=== PATIENT | female | born 1975 | race Caucasian/White ===

== ENCOUNTER 2016-11-14 19:29 | Emergency (ER) | payer BC, MEDICAID ==
[2013-08-31 23:21] VITALS: BMI 37.8
[~2016-11-14 19:29] MED LIST: AMBIEN10 MG PO; BACTRIM DS TABL1 TAB PO; COLACE100 MG PO; ESTRACE 0.5 MG0.5 MG PO; MULTI-DAY VITAM1 TAB PO; NORCO 10/325 TA1 TA1 PO; NORCO 5/325 TAB1 TA1 PO; PERCOCET 5/3251 TA1 PO; PHENAZOPYRIDIN200 MG PO; PROZAC20 MG PO; RESTORIL15 MG PO; SYNTHROID25 MCG PO
[2016-12-29] MEDS ORDERED: HYDROCODONE-APA1 TAB PO (11:43)
[2016-12-29] MEDS ORDERED: KLONOPIN1 MG PO (11:44)
[2016-12-30 12:22] VITALS: BMI 38.9
== END 2016-11-14 22:38 | disposition home or self-care (01) ==
LOC: D.ER 19:29
DX: S99.921A Unspecified injury of right foot, initial encounter (principal); W19.XXXA Unspecified fall, initial encounter; Y93.89 Activity, other specified; Y92.89 Other specified places as the place of occurrence of the external cause

== ENCOUNTER 2016-11-16 00:19 | Emergency (ER) | payer MEDICAID ==
[2013-08-31 23:21] VITALS: BMI 37.8
[2016-12-29] MEDS ORDERED: HYDROCODONE-APA1 TAB PO (11:43)
[2016-12-29] MEDS ORDERED: KLONOPIN1 MG PO (11:44)
[2016-12-30 12:22] VITALS: BMI 38.9
== END 2016-11-16 01:18 | disposition home or self-care (01) ==
LOC: D.ER 00:19
DX: Z76.5 Malingerer [conscious simulation] (principal); M25.571 Pain in right ankle and joints of right foot

== ENCOUNTER 2016-11-16 11:49 | Emergency (ER) | payer MEDICAID ==
[2013-08-31 23:21] VITALS: BMI 37.8
[2016-12-29] MEDS ORDERED: HYDROCODONE-APA1 TAB PO (11:43)
[2016-12-29] MEDS ORDERED: KLONOPIN1 MG PO (11:44)
[2016-12-30 12:22] VITALS: BMI 38.9
== END 2016-11-16 15:05 | disposition home or self-care (01) ==
LOC: D.ER 11:49
DX: S99.921A Unspecified injury of right foot, initial encounter (principal); X58.XXXA Exposure to other specified factors, initial encounter; Y93.9 Activity, unspecified; Y92.89 Other specified places as the place of occurrence of the external cause

== ENCOUNTER 2016-11-18 10:31 | Day surgery (SDC) | payer MEDICAID, OTHER ==
[~2016-11-18] VITALS: Ht 162.6 cm; Wt 100.2 kg
[2016-11-18 11:15] VITALS: BP 130/80; Ht 162.6 cm; Wt 100.2 kg
[2016-11-18 11:49] LABS: HEMATOCRIT 39.5 % (36.0-48.0); HEMOGLOBIN 12.4 g/dL (12-16); MCH 33.1 pg (26.0-34.0); MCHC 31.4 g/dL (31.0-37.0); MCV 105.3 fL (80.0-100.0); RBC 3.75 10x6/uL (4.00-5.40); RDW 15.1 % (11.5-14.5); WBC 5.5 10x3/uL (4.8-10.8)
[2016-11-18] MEDS ORDERED: MEPERIDINE HCL50 MG PO (12:52)
--- NOTE | 2016-11-18 13:37 | NUR ---
1330-RECEIVED PT FROM PACU SLEEPY, VSS POX 98% ON 2L VIA NC. PT AROUSES TO VERBAL STIMULI. PT DENIES ANY PAIN AT THIS TIME. MOTHER AT BEDSIDE. PT CAN NOT FEEL ME TOUCHING HER TOES, BUT THERE IS GREAT CAP REFILL WILL CONTINUE TO MONITOR
--- NOTE | 2016-11-18 17:53 | NUR ---
1230 NAUSEA GIVEN ZOFRAN 1315 TAKEN FEW ICE CHIPS 1415 IV DC WITH CATHER TIP INTACT
--- NOTE | 2016-11-18 18:02 | NUR ---
1400 RESTING WITH EYES CLOSED 1500 WAITING ON WALKER 1530 PT HERE DANIELLE Mai DONE [id number] IV DC WITH CATHER TIPM INTACT
--- NOTE | 2016-11-22 17:08 | OP ---
PATIENT NAME: MITCHELL ARAUJO MEDICAL RECORD: [id number] :73 LOCATION:D.[facility] ADMISSION DATE: SURGEON: FAVIAN MADERA MD DATE OF OPERATION: 11/18/2016 PREOPERATIVE DIAGNOSIS: Displaced 5th metatarsal fracture. POSTOPERATIVE DIAGNOSIS: Displaced 5th metatarsal fracture. PROCEDURE: Open reduction internal fixation of displaced 5th metatarsal fracture. SURGEON: Favian Madera MD. ANESTHESIA: General. INTRAOPERATIVE COMPLICATIONS: None. SUMMARY OF PATHOLOGIC FINDINGS: Essentially none. OPERATIVE SUMMARY IN DETAIL: After obtaining the appropriate preoperative orthopedic surgery consent, as well as anesthetic consultation, evaluation and clearance, the patient was brought to the operating room and placed on the operating table in supine position. After adequate general laryngeal mask airway was administered, tourniquet was placed about the proximal aspect of the right lower extremity. Right lower extremity was then prepped and draped in routine sterile fashion. The leg was elevated and exsanguinated, tourniquet was inflated to 350 mmHg. Fluoroscopy was brought in. An incision was made in the mid lateral aspect of the proximal aspect of the fifth metatarsal. Incision was carried down to the fracture and a post fracture hematoma was removed. The fracture was reduced at this point and a single guidewire for the 4.0 cannulated screws was placed down the shaft of the fifth metatarsal while holding the fracture reduced. A 46-mm 3.0 compression screw was placed across the fracture and the head which was buried into the bone resulting in excellent compression across the fracture site itself. Having completed this, the wound was irrigated and closed with 4-0 Prolene. Sterile dressings were applied. Posterior L&U splint was applied. The patient was awakened, taken to the recovery room in stable condition. All final needle and sponge counts were correct. TRANSINT:[id number] Voice Confirmation ID: [id number] DOCUMENT ID: [id number] FAVIAN MADERA MD at 1708 CC: [id number] DICTATION DATE: 11/18/16 1250 CRACKLING PRESS OPERATOR: 11/18/16 1504 [facility] 11/18/16 [place] [address]
[2016-12-29] MEDS ORDERED: HYDROCODONE-APA1 TAB PO (11:43)
[2016-12-29] MEDS ORDERED: KLONOPIN1 MG PO (11:44)
== END 2016-11-18 16:00 | disposition home or self-care (01) ==
LOC: D.OPS 10:31
PROVIDERS: Anesthesiology
DX: S92.351A Displaced fracture of fifth metatarsal bone, right foot, initial encounter for closed fracture (principal)

== ENCOUNTER 2016-12-19 00:14 | Emergency (ER) | payer MEDICAID ==
[2016-11-18 11:15] VITALS: BMI 38.0
[~2016-12-19 00:14] MED LIST changes: +MEPERIDINE HCL50 MG PO
[2016-12-29] MEDS ORDERED: HYDROCODONE-APA1 TAB PO (11:43)
[2016-12-29] MEDS ORDERED: KLONOPIN1 MG PO (11:44)
== END 2016-12-19 04:40 | disposition home or self-care (01) ==
LOC: D.ER 00:14
DX: S90.31XA Contusion of right foot, initial encounter (principal); S80.01XA Contusion of right knee, initial encounter; W19.XXXA Unspecified fall, initial encounter; Y93.89 Activity, other specified; Y92.019 Unspecified place in single-family (private) house as the place of occurrence of the external cause; S93.401A Sprain of unspecified ligament of right ankle, initial encounter

== ENCOUNTER 2016-12-24 22:18 | Emergency (ER) | payer MEDICAID ==
[2016-11-18 11:15] VITALS: BMI 38.0
[2016-12-29] MEDS ORDERED: HYDROCODONE-APA1 TAB PO (11:43)
[2016-12-29] MEDS ORDERED: KLONOPIN1 MG PO (11:44)
== END 2016-12-25 02:31 | disposition home or self-care (01) ==
LOC: D.ER 22:18
DX: G89.18 Other acute postprocedural pain (principal)

== ENCOUNTER 2016-12-26 12:21 | Emergency (ER) | payer MEDICAID ==
[2016-11-18 11:15] VITALS: BMI 38.0
[2016-12-29] MEDS ORDERED: HYDROCODONE-APA1 TAB PO (11:43)
[2016-12-29] MEDS ORDERED: KLONOPIN1 MG PO (11:44)
== END 2016-12-26 15:57 | disposition home or self-care (01) ==
LOC: D.ER 12:21
DX: G89.18 Other acute postprocedural pain (principal); M96.89 Other intraoperative and postprocedural complications and disorders of the musculoskeletal system; T84.098A Other mechanical complication of other internal joint prosthesis, initial encounter

== ENCOUNTER 2016-12-30 10:52 | Day surgery (SDC) | payer MEDICAID ==
[~2016-12-30] VITALS: Ht 162.6 cm; Wt 102.5 kg
[~2016-12-30 10:52] MED LIST changes: +HYDROCODONE-APA1 TAB PO; +KLONOPIN1 MG PO
[2016-12-30 12:09] LABS: HEMATOCRIT 40.4 % (36.0-48.0); HEMOGLOBIN 13.1 g/dL (12-16); MCH 32.5 pg (26.0-34.0); MCHC 32.4 g/dL (31.0-37.0); MCV 100.2 fL (80.0-100.0); MEAN PLATELET VOLUME 9.3 fL (7.4-10.4); RBC 4.03 10x6/uL (4.00-5.40); RDW 13.2 % (11.5-14.5); WBC 5.5 10x3/uL (4.8-10.8)
[2016-12-30 12:22] VITALS: BP 119/78; Ht 162.6 cm; Wt 102.5 kg
--- NOTE | 2016-12-30 15:16 | NUR ---
PT COMPLAINED OF NO RELIEF FROM DILAUDID [address] ALEXANDRE NOTIFIED. ANOTHER POPLITEAL BLOCK PERFORMED USING 30 ML OF 0.25% BUPIVICAINE WITH EPI.
[2016-12-30] MEDS ORDERED: DILAUDID4 MG PO (16:12)
--- NOTE | 2017-01-03 18:57 | OP ---
PATIENT NAME: MITCHELL ARAUJO MEDICAL RECORD: [id number] :73 LOCATION:D.[facility] ADMISSION DATE: SURGEON: FAVIAN MADERA MD DATE OF OPERATION: 12/30/2016 Orthopedic Surgery Operative Note PREOPERATIVE DIAGNOSIS: Recurrent fracture of the right fifth metatarsal. POSTOPERATIVE DIAGNOSIS: Recurrent fracture of the right fifth metatarsal. PROCEDURE: Revision open reduction internal fixation of right fifth metatarsal. SURGEON: Favian Madera MD ANESTHESIA: General. INTRAOPERATIVE COMPLICATIONS: Essentially none. SUMMARY OF PATHOLOGIC FINDINGS: The patient had refractured and had displacement of the previously placed intramedullary screw after a fall in the postoperative period. This required more extensive fixation and intramedullary screw. The modular handset was used with ____ plating system. OPERATIVE SUMMARY IN DETAIL: After obtaining the appropriate preoperative orthopedic surgery consent as well as anesthetic consultation, evaluation and clearance, the patient was brought to the operating room and placed on the operating table in supine position. After adequate general laryngeal mask was administered, tourniquet was placed in the proximal aspect of the right lower extremity. Right lower extremity was then prepped and draped in routine sterile fashion. The leg was elevated and exsanguinated and tourniquet was inflated to 350 mmHg. Under direct fluoroscopic guidance, an incision was made again and a careful dissection was carried down. The guidewire of the previously placed cannulated screw was then placed into the screw. The screw was then removed. Proximal aspect of the metatarsal at the metatarsal base was comminuted. Careful placement of the T-plate was utilized on the lateral aspect and this was all done under fluoroscopy. Good fixation was achieved. Having completed this, final radiographs were taken and submitted for radiologist review. The wound was copiously irrigated and closed using 2-0 Vicryl followed by 4-0 Prolene in running fashion. Sterile dressings were applied. Tourniquet was deflated and a postoperative L&U splint was applied. The patient was awakened and taken to recovery in stable condition. All final needle and sponge counts were correct. TRANSINT:[id number] Voice Confirmation ID: [id number] DOCUMENT ID: [id number] FAVIAN MADERA MD at 1857 CC: [id number] DICTATION DATE: 01/03/17 0847 BOTTOM MAN: 01/03/17 1104 [facility] 12/30/16 [place] [id number] [place] [address]
== END 2016-12-30 17:50 | disposition home or self-care (01) ==
LOC: D.OPS 10:52 → D.PAN 13:55 → D.OPS 17:50 → D.PAN 18:55 → D.OPS 19:15 → D.PAN 19:15
PROVIDERS: Anesthesiology
DX: S92.315A Nondisplaced fracture of first metatarsal bone, left foot, initial encounter for closed fracture (principal)

== ENCOUNTER 2019-02-23 17:39 | Emergency (ER) | payer BC ==
[~2019-02-23] VITALS: Ht 162.6 cm; Wt 103.2 kg
[~2019-02-23 17:39] MED LIST changes: +DILAUDID4 MG PO
[2019-02-23 18:07] VITALS: BP 132/86; Ht 162.6 cm; Wt 103.2 kg
[2019-02-23] MEDS ORDERED: ROBAXIN500 MG PO (18:10)
[2019-02-23 18:45] LABS: BASOPHILS 0.1 % (0-2); EOSINOPHILS 1.4 % (0-7); HEMATOCRIT 33.8 % (36.0-48.0); HEMOGLOBIN 10.3 g/dL (12-16); IMMATURE GRANULOCYTES 0.3 % (0-5); LYMPHOCYTES 25.2 % (15-50); MCHC 30.5 g/dL (31.0-37.0); MCV 78.6 fL (80.0-100.0); MEAN PLATELET VOLUME 8.6 fL (7.4-10.4); MONOCYTES 8.6 % (2-11); NEUTROPHILS 64.4 % (40-80); PLATELET COUNT 250 10x3/uL (130-400); RDW 16.6 % (11.5-14.5)
[2019-02-23 19:01] LABS: APPEARANCE CLEAR (CLEAR); BILIRUBIN 1+ (NEGATIVE); COLOR YELLOW (YELLOW); GLUCOSE NEGATIVE (NEGATIVE); KETONE NEGATIVE (NEGATIVE); NITRITE NEGATIVE (NEGATIVE); PROTEIN TRACE mg/dL (NEGATIVE); UROBILINOGEN NORMAL (NORMAL)
[2019-02-23 19:02] LABS: ALBUMIN 3.4 g/dL (3.4-5.0); ALKALINE PHOSPHATASE 85 U/L (46-116); ALT (SGPT) 18 U/L (10-68); BILIRUBIN - TOTAL 0.23 mg/dL (0.2-1.3); CALC OSMOLALITY 281 mosm/kg (275-300); CALCIUM 8.3 mg/dL (8.5-10.1); CARBON DIOXIDE 26.3 mmol/L (21.0-32.0); CHLORIDE - SERUM 105 mmol/L (98-107); CREATININE - SERUM 0.7 mg/dL (0.6-1.3); GLUCOSE 88 mg/dL (74-106); PROTEIN - SERUM 7.3 g/dL (6.4-8.2); SODIUM 141 mmol/L (136-145); UREA NITROGEN 17 mg/dL (7-18); eGFR NON AFRICAN AMERICAN > 90 mL/min (90-120)
[2019-02-23 19:15] LABS: CKMB 0.3 U/L (0.0-3.6); CREATINE KINASE 69 UL (21-215); TROPONIN-I < 0.017 ng/mL (0.000-0.060)
[2019-02-23] MEDS ORDERED: CYCLOBENZAPRINE10 MG PO (20:55)
== END 2019-02-23 21:48 | disposition home or self-care (01) ==
LOC: D.ER 17:39
PROVIDERS: Family Medicine
DX: M54.6 Pain in thoracic spine (principal)

== ENCOUNTER 2019-04-04 08:00 | Outpatient (CLI) | payer BC ==
[2019-02-23 18:07] VITALS: BMI 39.0
[~2019-04-04 08:00] MED LIST changes: +CYCLOBENZAPRINE10 MG PO; +ROBAXIN500 MG PO
== END 2019-04-04 23:59 | disposition home or self-care (01) ==
LOC: D.MAMMO 08:00
PROVIDERS: ATTEND Family Medicine
DX: N64.4 Mastodynia (principal)

== ENCOUNTER 2019-08-11 11:48 | Emergency (ER) | payer MEDICAID, BC ==
[~2019-08-11] VITALS: Ht 162.6 cm; Wt 106.8 kg
[2019-08-11 12:00] VITALS: Ht 162.6 cm; Wt 106.8 kg
[2019-08-11] MEDS ORDERED: KEFLEX750 MG PO (12:03)
[2019-08-11] MEDS ORDERED: MUPIROCIN15 GM TOPICAL (12:03)
[2019-08-11 12:32] LABS: BASOPHILS 0.2 % (0-2); EOSINOPHILS 1.4 % (0-7); HEMATOCRIT 33.5 % (36.0-48.0); IMMATURE GRANULOCYTES 0.3 % (0-5); LYMPHOCYTES 32.3 % (15-50); MCH 23.5 pg (26.0-34.0); MCHC 29.9 g/dL (31.0-37.0); MCV 78.6 fL (80.0-100.0); MEAN PLATELET VOLUME 8.5 fL (7.4-10.4); MONOCYTES 10.1 % (2-11); NEUTROPHILS 55.7 % (40-80); PLATELET COUNT 251 10x3/uL (130-400); RBC 4.26 10x6/uL (4.00-5.40); WBC 6.6 10x3/uL (4.8-10.8)
[2019-08-11 12:39] LABS: CALC OSMOLALITY 277 mosm/kg (275-300); CALCIUM 8.7 mg/dL (8.5-10.1); CARBON DIOXIDE 27.5 mmol/L (21.0-32.0); CHLORIDE - SERUM 104 mmol/L (98-107); CREATININE - SERUM 0.7 mg/dL (0.6-1.3); POTASSIUM - SERUM 3.8 mmol/L (3.5-5.1); SODIUM 140 mmol/L (136-145); UREA NITROGEN 15 mg/dL (7-18); eGFR NON AFRICAN AMERICAN > 90 mL/min (90-120)
[2019-08-11 12:40] LABS: GLUCOSE 68 mg/dL (74-106)
[2019-08-11 12:45] LABS: ALBUMIN 3.5 g/dL (3.4-5.0); ALKALINE PHOSPHATASE 86 U/L (46-116); ALT (SGPT) 18 U/L (10-68); BILIRUBIN - TOTAL 0.18 mg/dL (0.2-1.3); LIPASE 136 U/L (73-393); PROTEIN - SERUM 7.3 g/dL (6.4-8.2)
[2019-08-11 14:14] LABS: APPEARANCE CLEAR (CLEAR); BILIRUBIN NEGATIVE (NEGATIVE); COLOR STRAW (YELLOW); GLUCOSE NEGATIVE (NEGATIVE); KETONE NEGATIVE (NEGATIVE); NITRITE NEGATIVE (NEGATIVE); PROTEIN NEGATIVE (NEGATIVE); SPECIFIC GRAVITY 1.015 (1.005-1.020); UROBILINOGEN NORMAL (NORMAL)
[2019-08-11] MEDS ORDERED: ZOFRAN8 MG PO (14:42)
[2019-08-11 15:24] VITALS: BP 142/78
[2019-08-12] MEDS ORDERED: PHENERGAN25 M1 PO (19:44)
[2019-08-12] MEDS ORDERED: BENTYL 20 MG TA20 MG PO (20:30)
== END 2019-08-11 15:25 | disposition home or self-care (01) ==
LOC: D.ER 11:48
PROVIDERS: Family Medicine
DX: R10.31 Right lower quadrant pain (principal); I88.0 Nonspecific mesenteric lymphadenitis; D64.9 Anemia, unspecified

== ENCOUNTER 2019-08-12 19:23 | Emergency (ER) | payer MEDICAID, BC ==
[~2019-08-12] VITALS: Ht 162.6 cm; Wt 104.5 kg
[~2019-08-12 19:23] MED LIST changes: +KEFLEX750 MG PO; +MUPIROCIN15 GM TOPICAL; +ZOFRAN8 MG PO
[2019-08-12 19:39] VITALS: Ht 162.6 cm; Wt 104.5 kg
[2019-08-12] MEDS ORDERED: PHENERGAN25 M1 PO (19:44)
[2019-08-12] MEDS ORDERED: BENTYL 20 MG TA20 MG PO (20:30)
[2019-08-12 21:04] VITALS: BP 128/93
== END 2019-08-12 21:04 | disposition home or self-care (01) ==
LOC: D.ER 19:23
DX: R10.9 Unspecified abdominal pain (principal)

== ENCOUNTER 2019-08-15 14:31 | Emergency (ER) | payer MEDICAID, BC ==
[~2019-08-15] VITALS: Ht 162.6 cm; Wt 109.1 kg
[~2019-08-15 14:31] MED LIST changes: +BENTYL 20 MG TA20 MG PO; +PHENERGAN25 M1 PO
[2019-08-15 14:36] VITALS: Ht 162.6 cm; Wt 109.1 kg
[2019-08-15] MEDS ORDERED: CIPRO500 MG PO (14:39)
[2019-08-15] MEDS ORDERED: LINZESS72 MCG PO (14:39)
[2019-08-15 15:39] LABS: BASOPHILS 0.3 % (0-2); EOSINOPHILS 1.5 % (0-7); HEMATOCRIT 33.8 % (36.0-48.0); HEMOGLOBIN 10.2 g/dL (12-16); IMMATURE GRANULOCYTES 0.2 % (0-5); LYMPHOCYTES 27.5 % (15-50); MCH 23.7 pg (26.0-34.0); MCHC 30.2 g/dL (31.0-37.0); MCV 78.6 fL (80.0-100.0); MEAN PLATELET VOLUME 8.5 fL (7.4-10.4); MONOCYTES 9.4 % (2-11); NEUTROPHILS 61.1 % (40-80); WBC 6.6 10x3/uL (4.8-10.8)
[2019-08-15 15:40] LABS: PLATELET COUNT 302 10x3/uL (130-400)
[2019-08-15 15:45] LABS: APPEARANCE CLEAR (CLEAR); BILIRUBIN NEGATIVE (NEGATIVE); COLOR YELLOW (YELLOW); GLUCOSE NEGATIVE (NEGATIVE); KETONE NEGATIVE (NEGATIVE); NITRITE NEGATIVE (NEGATIVE); PROTEIN NEGATIVE (NEGATIVE); UROBILINOGEN NORMAL (NORMAL)
[2019-08-15 15:50] LABS: CALC OSMOLALITY 280 mosm/kg (275-300); CALCIUM 8.7 mg/dL (8.5-10.1); CARBON DIOXIDE 27.9 mmol/L (21.0-32.0); CHLORIDE - SERUM 106 mmol/L (98-107); CREATININE - SERUM 0.8 mg/dL (0.6-1.3); GLUCOSE 88 mg/dL (74-106); POTASSIUM - SERUM 4.3 mmol/L (3.5-5.1); SODIUM 142 mmol/L (136-145); UREA NITROGEN 11 mg/dL (7-18); eGFR NON AFRICAN AMERICAN 82 mL/min (90-120)
[2019-08-15 15:56] LABS: ALBUMIN 3.5 g/dL (3.4-5.0); ALKALINE PHOSPHATASE 87 U/L (46-116); ALT (SGPT) 23 U/L (10-68); BILIRUBIN - TOTAL 0.25 mg/dL (0.2-1.3); PROTEIN - SERUM 7.6 g/dL (6.4-8.2)
[2019-08-15] MEDS ORDERED: PHENERGAN25 M1 PO (18:04)
[2019-08-15 18:37] VITALS: BP 120/76
== END 2019-08-15 18:39 | disposition home or self-care (01) ==
LOC: D.ER 14:31
PROVIDERS: Family Medicine
DX: K52.9 Noninfective gastroenteritis and colitis, unspecified (principal)

== ENCOUNTER → 2019-10-04 09:00 | Outpatient (CLI) | payer BC ==
[2019-08-15 14:36] VITALS: BMI 41.3
[~2019-10-04 09:00] MED LIST changes: +CIPRO500 MG PO; +LINZESS72 MCG PO
== END | disposition home or self-care (01) ==
LOC: D.MAMMO 09:00
PROVIDERS: ATTEND Family Medicine
DX: R92.8 Other abnormal and inconclusive findings on diagnostic imaging of breast (principal)

== ENCOUNTER 2019-11-08 12:23 | Emergency (ER) | payer OTHER ==
[~2019-11-08] VITALS: Ht 162.6 cm; Wt 109.1 kg
[2019-11-08 12:30] VITALS: Ht 162.6 cm; Wt 109.1 kg
[2019-11-08 13:11] LABS: BASOPHILS 0.1 % (0-2); EOSINOPHILS 0.6 % (0-7); HEMATOCRIT 35.4 % (36.0-48.0); HEMOGLOBIN 10.7 g/dL (12-16); IMMATURE GRANULOCYTES 0.3 % (0-5); LYMPHOCYTES 22.8 % (15-50); MCH 23.7 pg (26.0-34.0); MCHC 30.2 g/dL (31.0-37.0); MCV 78.5 fL (80.0-100.0); MEAN PLATELET VOLUME 8.5 fL (7.4-10.4); NEUTROPHILS 70.2 % (40-80); PLATELET COUNT 270 10x3/uL (130-400); RBC 4.51 10x6/uL (4.00-5.40); RDW 16.3 % (11.5-14.5)
[2019-11-08 13:19] LABS: CALC OSMOLALITY 280 mosm/kg (275-300); CALCIUM 8.7 mg/dL (8.5-10.1); CARBON DIOXIDE 26.7 mmol/L (21.0-32.0); CHLORIDE - SERUM 103 mmol/L (98-107); CREATININE - SERUM 0.8 mg/dL (0.6-1.3); GLUCOSE 88 mg/dL (74-106); POTASSIUM - SERUM 3.9 mmol/L (3.5-5.1); SODIUM 140 mmol/L (136-145); UREA NITROGEN 20 mg/dL (7-18); eGFR NON AFRICAN AMERICAN 82 mL/min (90-120)
[2019-11-08 13:22] LABS: APTT 25.1 SECONDS (22.8-39.4); INR 0.85 (0.85-1.17); PROTIME 11.6 SECONDS (11.6-15.0)
[2019-11-08 13:34] LABS: ALBUMIN 3.5 g/dL (3.4-5.0); ALKALINE PHOSPHATASE 83 U/L (46-116); ALT (SGPT) 20 U/L (10-68); BILIRUBIN - TOTAL 0.13 mg/dL (0.2-1.3); CKMB 0.3 U/L (0.0-3.6); CREATINE KINASE 65 UL (21-215); MAGNESIUM - SERUM 1.8 mg/dL (1.8-2.4); PROTEIN - SERUM 7.5 g/dL (6.4-8.2)
[2019-11-08 13:39] LABS: TROPONIN-I < 0.017 ng/mL (0.000-0.060)
[2019-11-08] MEDS ORDERED: FERROUS SULFAT325 MG PO (14:46)
[2019-11-08] MEDS ORDERED: HYDROCODON-ACE1 EAC7 PO (14:48)
[2019-11-08 15:13] VITALS: BP 114/64
[2019-11-09] MEDS ORDERED: ZOFRAN ODT4 MG/UDTAB PO (20:29)
== END 2019-11-08 15:15 | disposition home or self-care (01) ==
LOC: D.ER 12:23
PROVIDERS: Emergency Medicine
DX: R07.89 Other chest pain (principal); E61.1 Iron deficiency; E07.9 Disorder of thyroid, unspecified; R11.0 Nausea; R42 Dizziness and giddiness

== ENCOUNTER 2019-11-09 16:02 | Emergency (ER) | payer OTHER ==
[~2019-11-09] VITALS: Ht 162.6 cm; Wt 106.8 kg
[~2019-11-09 16:02] MED LIST changes: +FERROUS SULFAT325 MG PO; +HYDROCODON-ACE1 EAC7 PO
[2019-11-09 16:14] VITALS: Ht 162.6 cm; Wt 106.8 kg
[2019-11-09 16:36] LABS: BASOPHILS 0.1 % (0-2); EOSINOPHILS 0.6 % (0-7); HEMATOCRIT 34.7 % (36.0-48.0); HEMOGLOBIN 10.3 g/dL (12-16); IMMATURE GRANULOCYTES 0.2 % (0-5); LYMPHOCYTES 22.3 % (15-50); MCH 23.5 pg (26.0-34.0); MCHC 29.7 g/dL (31.0-37.0); MCV 79.2 fL (80.0-100.0); MEAN PLATELET VOLUME 8.3 fL (7.4-10.4); MONOCYTES 7.3 % (2-11); NEUTROPHILS 69.5 % (40-80); PLATELET COUNT 289 10x3/uL (130-400); RBC 4.38 10x6/uL (4.00-5.40); RDW 16.4 % (11.5-14.5); WBC 8.4 10x3/uL (4.8-10.8)
[2019-11-09 16:48] LABS: APPEARANCE CLEAR (CLEAR); COLOR YELLOW (YELLOW)
[2019-11-09 16:49] LABS: CALC OSMOLALITY 287 mosm/kg (275-300); CALCIUM 8.4 mg/dL (8.5-10.1); CARBON DIOXIDE 27.2 mmol/L (21.0-32.0); CHLORIDE - SERUM 108 mmol/L (98-107); CREATININE - SERUM 0.8 mg/dL (0.6-1.3); GLUCOSE 96 mg/dL (74-106); POTASSIUM - SERUM 3.8 mmol/L (3.5-5.1); SODIUM 143 mmol/L (136-145); UREA NITROGEN 20 mg/dL (7-18); eGFR NON AFRICAN AMERICAN 82 mL/min (90-120)
[2019-11-09 16:49] LABS: BILIRUBIN NEGATIVE (NEGATIVE); GLUCOSE NEGATIVE (NEGATIVE); KETONE NEGATIVE (NEGATIVE); NITRITE NEGATIVE (NEGATIVE); PROTEIN NEGATIVE (NEGATIVE); SPECIFIC GRAVITY 1.025 (1.005-1.020); UROBILINOGEN NORMAL (NORMAL)
[2019-11-09 16:58] LABS: ALBUMIN 3.6 g/dL (3.4-5.0); ALKALINE PHOSPHATASE 85 U/L (30-120); ALT (SGPT) 20 U/L (10-68); AMYLASE - SERUM 121 U/L (25-115); BILIRUBIN - TOTAL 0.15 mg/dL (0.2-1.3); LIPASE 153 U/L (73-393); PROTEIN - SERUM 7.7 g/dL (6.4-8.2); TROPONIN-I < 0.017 ng/mL (0.000-0.060)
[2019-11-09] MEDS ORDERED: ZOFRAN ODT4 MG/UDTAB PO (20:29)
[2019-11-09 20:35] VITALS: BP 137/92
== END 2019-11-09 20:35 | disposition home or self-care (01) ==
LOC: D.ER 16:02
PROVIDERS: Family Medicine
DX: R10.9 Unspecified abdominal pain (principal); E07.9 Disorder of thyroid, unspecified; R11.0 Nausea

== ENCOUNTER 2020-04-10 08:00 | Outpatient (CLI) | payer BC ==
[2019-11-22 11:55] VITALS: BMI 42.5
[~2020-04-10 08:00] MED LIST changes: +ZOFRAN ODT4 MG/UDTAB PO
== END 2020-04-10 23:59 | disposition home or self-care (01) ==
LOC: D.MAMMO 08:00
PROVIDERS: ATTEND Family Medicine
DX: R92.8 Other abnormal and inconclusive findings on diagnostic imaging of breast (principal)

== ENCOUNTER → 2020-05-16 10:48 | Outpatient (CLI) | payer BC ==
[2019-11-22 11:55] VITALS: BMI 42.5
== END | disposition home or self-care (01) ==
LOC: D.CT 10:48
PROVIDERS: ATTEND Family Medicine
DX: R10.11 Right upper quadrant pain (principal)

== ENCOUNTER 2021-03-05 07:49 | Day surgery (SDC) | payer BC, OTHER ==
[~2021-03-05] VITALS: Ht 162.6 cm; Wt 98.0 kg
[2021-03-05 08:28] LABS: HEMATOCRIT 38.9 % (36.0-48.0); HEMOGLOBIN 12.8 g/dL (12-16); MCH 31.9 pg (26.0-34.0); MCV 96.7 fL (80.0-100.0); MEAN PLATELET VOLUME 6.6 fL (7.4-10.4); RBC 4.02 10x6/uL (4.00-5.40); RDW 13.8 % (11.5-14.5)
[2021-03-05 09:01] VITALS: BP 134/71; Ht 162.6 cm; Wt 98.0 kg
[2021-03-05] MEDS ORDERED: AMBIEN10 MG PO (09:15)
--- NOTE | 2021-03-05 13:22 | NUR ---
1321 PATIENT IN SINUS BRADYCARDIA IN 50S. GUSTAVO CHAUHAN NOTIFIED, NO ORDERS RECEIVED
--- NOTE | 2021-03-09 11:31 | OP ---
PATIENT NAME: MITCHELL SUAREZ MEDICAL RECORD: [id number] :73 [facility] DATE: SURGEON: MARQUISE QUESADA MD DATE OF OPERATION: 03/05/2021 PREOPERATIVE DIAGNOSIS: Right thumb carpometacarpal arthritis. POSTOPERATIVE DIAGNOSIS: Right thumb carpometacarpal arthritis. PROCEDURE PERFORMED: Right thumb CMC arthroplasty. INDICATIONS FOR THE PROCEDURE: Ms. Suarez is a 45-year-old right-hand dominant female with history of right thumb pain and CMC arthritis. She has been dealing with this for a while now. The pain is getting progressively worse. We tried injections and splints, but had failed to provide her any relief. She would like to proceed with surgery for the thumb CMC arthroplasty. Risks, benefits and alternatives of surgery were discussed with the patient and consent was obtained. DESCRIPTION OF THE PROCEDURE: The patient was met in the holding area where her identity and confirmation of procedure was performed. The right upper extremity was marked. She was taken to the operating room where she was placed supine on the operating table, and anesthesia was administered. Tourniquet was applied to the right arm. The right arm was prepped and draped in a sterile fashion. The patient received preoperative antibiotics and timeout was performed prior to initiating the case. On initiation of the case, the arm was exsanguinated and the tourniquet was raised. Total tourniquet time was 70 minutes. Incision was made over the radial thumb along the glabrous skin edge over the CMC joint. We incised through the skin and subcutaneous tissues, dissecting down to the overlying capsule. A 22-gauge needle was then inserted into the trapezium. This was localized under fluoroscopy. We then began our dissection, releasing the capsule along the radial border and elevating the tissue off of the trapezium and the base of the first metacarpal. Once the trapezium was exposed. A corkscrew device was then inserted into the bone. We then used retractors to allow for full visualization and began releasing tissue off of the trapezium both dorsal and ventral. We will continue to manipulate these tissues and releases this. The bone was able to be removed in 1 almost full piece. The tip of the trapezium extending ulnarly was removed separately and this provided full release of the bone. The wound was irrigated thoroughly with saline. A release was confirmed under fluoroscopy. The CMC arthroplasty was then completed with the Arthrex TightRope. Our guidewire was inserted at the base of the 1st metacarpal extending across the base and into the base of the second metacarpal. Once we were pleased with our alignment, the guidewire was advanced through the far cortex of the second metacarpal and an incision was made dorsally to allow for removal of the guide pin. The guide pin was then advanced and our suture ends were passed. The button was tightened securely along the base of the 1st metatarsal and then tensioned over the second metacarpal. Once we were pleased with our tensioning between the buttons, our secure knot was tied and this completed our thumb CMC arthroplasty. Final images were obtained that showed good alignment and placement of our thumb CMC arthroplasty. The wound was irrigated thoroughly with saline. The deep tissues including the capsule were closed with Vicryl suture. The skin was closed with Prolene. Sterile dressing was placed and the patient was placed into a thumb spica splint. She was turned back over to anesthesia where she was awakened and taken to the recovery room in stable condition. OPERATIVE REPORT [id number] MITCHELL SUAREZ POSTOPERATIVE PLAN: The patient is going to return home with her family today. She needs to remain in the thumb spica splint until followup. We will see her back in clinic in 2 weeks. COMPLICATIONS: None. ANESTHESIA: General with peripheral nerve block. BLOOD LOSS: 10 mL. TRANSINT:[id number] Voice Confirmation ID: [id number] DOCUMENT ID: [id number] MARQUISE QUESADA MD at 1131 CC: [id number] DICTATION DATE: 03/05/21 1311 WHITING MACHINE OPERATOR: 03/05/21 1340 [facility] 03/05/21 [facility] [address] [place] [address]
== END 2021-03-05 15:15 | disposition home or self-care (01) ==
LOC: D.OPS 07:49
PROVIDERS: ATTEND Orthopaedic Surgery
DX: M18.11 Unilateral primary osteoarthritis of first carpometacarpal joint, right hand (principal); M25.531 Pain in right wrist; M67.441 Ganglion, right hand; M79.671 Pain in right foot